=== PATIENT | male | born 1985 | race Hispanic/Latino ===

== ENCOUNTER 2018-04-19 09:55 | Emergency (ER) | payer BC ==
[2018-04-19 10:41] LABS: #Basophils 0.1 thou/uL (0.0-0.2); #Eosinphils 0.4 thou/uL (0.0-0.7); #Lymphocytes 1.3 thou/uL (1.20-3.40); #Monocytes 0.5 thou/uL (0.11-0.59); %Basophils 1.1 % (0.0-1.0); %Eosinophils 4.9 % (0.0-10.0); %Lymphocytes 16.1 % (21.0-51.0); %Monocytes 5.9 % (0.0-10.0); Hemoglobin 14.6 g/dL (14.0-18.0); Mean Corpuscular HGB CONC 33.2 g/dL (32.0-36.0); Mean Corpuscular Hemoglobin 32.6 pg (27.0-31.0); Mean Corpuscular Volume 98.3 fl (80.0-94.0); Mean Platelet Volume 6.8 fL (7.4-10.4); Platelet Count 366 thou/uL (130-400); RBC Distribution Width 11.4 % (11.5-14.5); Red Blood Cell (RBC) Count 4.48 mill/uL (4.70-6.10); White Blood Cell (WBC) Count 8.3 thou/uL (4.8-10.8)
--- NOTE | 2018-04-19 10:48 | RAD ---
TWO VIEWS CHEST: Date: 04-19-18 Comparison: 05-26-10 History: Shortness of breath, hypertension. FINDINGS: There is no pneumothorax, pleural fluid, focal consolidation or alveolar edema. Heart and mediastinal contours are unremarkable. IMPRESSION: No acute findings. POS: [facility]
[2018-04-19 11:09] LABS: ALT (SGPT) 35 U/L (8-55); AST (SGOT) 25 U/L (5-34); Albumin 4.4 g/dL (3.5-5.0); Alkaline Phosphatase 104 U/L (40-150); Anion Gap 12 mmol/L (10-20); BUN (Urea Nitrogen) 20 mg/dL (8.9-20.6); Bilirubin, Total 0.6 mg/dL (0.2-1.2); Calc. Creatinine Clearance 0 mL/min (70-130); Calcium 9.3 mg/dL (7.8-10.44); Carbon Dioxide 22 mmol/L (22-29); Chloride 107 mmol/L (98-107); Estimated GFR-MDRD Greater than 90; Globulin 3.8 g/dL (2.4-3.5); Glucose 112 mg/dL (70-105); Potassium 4.4 mmol/L (3.5-5.1); Protein, Total 8.2 g/dL (6.0-8.3); Sodium 137 mmol/L (136-145)
[2018-04-19 11:13] LABS: Troponin I Less than 0.010 ng/mL (< 0.028)
== END 2018-04-19 11:33 | disposition home or self-care (01) ==
LOC: EEVIPCON 09:55 → ERS 09:55
DX: I10 Essential (primary) hypertension (principal); R06.02 Shortness of breath; Z79.899 Other long term (current) drug therapy
CPT/HCPCS: 36415; 71046; 80053; 84484; 85025; 93005

== ENCOUNTER 2019-01-26 11:07 | Day surgery (SDC) | payer OTHER ==
[2019-01-25 14:10] VITALS: BMI 41.8
[2019-01-26] MEDS ORDERED: Midazolam HCl 2 mg/2 ml Vial ONE (11:24)
[2019-01-26] MEDS ORDERED: Fentanyl 100 MCG/2 ML VIAL ONE ×2 (11:24→11:38)
[2019-01-26] MEDS ORDERED: Lidocaine 2% Jelly 5 ML TUBE ONE (11:38)
[2019-01-26] MEDS ORDERED: Bupivacaine 0.25% HCL 30 ML VIAL ONE (12:07)
[2019-01-26 12:18] LABS: Anion Gap 13 mmol/L (10-20); BUN (Urea Nitrogen) 19 mg/dL (8.9-20.6); Calc. Creatinine Clearance 237 mL/min (70-130); Calcium 9.5 mg/dL (7.8-10.44); Carbon Dioxide 26 mmol/L (22-29); Chloride 105 mmol/L (98-107); Estimated GFR-MDRD Greater than 90; Glucose 95 mg/dL (70-105); Potassium 4.1 mmol/L (3.5-5.1); Sodium 140 mmol/L (136-145)
[2019-01-26] MEDS ORDERED: Lidocaine 1% (PF) 30 ML VIAL ONE (12:21)
[2019-01-26] MEDS ORDERED: Bacitracin Zinc Ointment 30 gm TUBE ONE (13:40)
[2019-01-26] MEDS ORDERED: Glycopyrrolate 0.2 MG/ML 5 ML SYRINGE ONE (13:53)
[2019-01-26] MEDS ORDERED: Ondansetron PF 4 MG/2 ML Vial ONE (13:53)
[2019-01-26] MEDS ORDERED: ePHEDrine 50 MG/ML VIAL ONE (13:53)
[2019-01-26] MEDS ORDERED: Lidocaine 1% PF 5 ML VIAL ONE (13:53)
[2019-01-26] MEDS ORDERED: PROPOFOL 200 MG/20 ML VIAL ONE (13:53)
--- NOTE | 2019-01-26 15:38 | OP ---
DATE OF PROCEDURE: 01/26/2019 PREOPERATIVE DIAGNOSES: Left small finger distal phalanx fracture with associated nail plate deformity and possible nail bed laceration, and injury is nearly 4 weeks old at this time. POSTOPERATIVE DIAGNOSES: Left small finger distal phalanx fracture with associated nail plate deformity and possible nail bed laceration, and injury is nearly 4 weeks old at this time. PROCEDURE PERFORMED: 1. Closed reduction percutaneous pinning of a left small finger distal phalanx fracture two-part and extra-articular. 2. Removal and repositioning of dystrophic nail plate. 3. Excision of scar tissue from sterile and germinal matrix, and then repair of nail bed laceration. ANESTHESIA: General and local. ESTIMATED BLOOD LOSS: Less than 10 mL. TOURNIQUET TIME: Less than 25 minutes. FINDINGS: Scarring around the sterile and germinal matrix, nail bed, left small finger displaced extra articular two part distal phalanx fracture and dystrophic nail plate left small finger. IMPLANTS: 0.035 K-wire and 0.045 K-wire. CONDITION: Stable. INDICATION FOR PROCEDURE: The patient is a 33-year-old male, who I saw in my clinic for the first time few days ago after he suffered an injury nearly a month ago to his left small finger. He suffered an injury while at work and involved somewhat of a crushing mechanism in the tip of the left small finger. He was seen and treated by his local provider staff on site. He presented to my clinic just few days ago for the first time with x-rays revealed a distal phalanx fracture of his left small finger, he also had a swollen dip joint and also nail plate abnormality as well. I discussed surgical and nonsurgical treatment options with the patient, and the patient opted to have surgical treatment in order to help to try to reduce the distal phalanx fracture, and also remove the nail plate and examine the underlying nail bed injury. I could not offer the patient any guarantees, unfortunately given the chronicity of his injury, he voiced understanding of this; however, I told him that I tried my best to realign any bone and take a look underneath the nail plate and repair whatever was necessary. He voiced understanding of this and agreed to proceeded. I discussed with his too, who is at bedside today in the holding area while the patient was awaiting surgery. She voiced understanding of all risks and goals. The goal of surgery is to optimize posttraumatic function of his left small finger. The risks associated with surgery include nonunion, malunion infection; injury to nerves, tendons, or blood vessels; need for further surgery; adverse reaction to anesthesia, etc. They both voiced understanding of all risks and goals associated with today's surgery and have elected to proceed with closed reduction percutaneous pinning for left small finger distal phalanx fracture, and then removal and repositioning nail plate and potential repair of nail bed. DESCRIPTION OF PROCEDURE: The patient was brought back to the operating room and placed supine on the operating room table. Antibiotics were given to the patient and left upper extremity tourniquet was applied. General anesthesia was induced by the Anesthesia team. Alcohol pads were used to prep the left small finger and after a time-out was performed, a digital ring block was administered in the left small finger using a combination of 1% plain lidocaine and 0.25% plain bupivacaine. The left upper extremity was then prepped and draped under sterile aseptic condition. 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 The patient's left upper extremity was prepped and draped under sterile aseptic condition and a second time out was performed. The left upper extremity was exsanguinated using an Esmarch wrap and the tourniquet was inflated to 250 mmHg. My attention was directed towards elevating the deformed nail plate off the underlying nail bed. I was able to do this bluntly and carefully using tenotomy scissors, care was taken to avoid any injury to the underlying nail bed. I was able to elevate the nail plate completely off the nail bed, and then placed into a sterile saline solution. There was some scarring overlying the sterile and germinal matrices, and I did my best to release all the scarring and remove it sharply using a 15-blade scalpel, and then I repaired this nail bed deformity and healed nail bed laceration using a simple interrupted 5-0 chromic sutures. I then debrided and trimmed the nail plate down and I was going to use this later as a splint to repair on a nail bed deformity. Prior to this, though I did perform a closed reduction, it was difficult to reduce the fracture given that it is nearly a month old, I did attempt to perform osteoclasis and tried to use a K-wire to do this as well. I used a 0.[address] to place it dorsally within the dip joint used it as a blocking pin to help reduce the proximal fragment and then I extended the finger at the dip joint to help maintain the reduction of the distal and proximal fragments, and then advanced a 0.045 K-wire in retrograde fashion distally to proximally. The 0.045 K-wire then crossed dip joint. I used fluoroscopic imaging to help guide both pins. Acceptable alignment of the pins was achieved, improved alignment of the fracture was also achieved. I was able to cut the 0.045 K-wire below the skin and then I bent and cut the 0.035 K-wire dorsally. I was able to suture the nail plate after it was debrided and trimmed underneath the appendicular skin fold, we used a splint to protect our nail bed repair. Tourniquet was deflated. Additional local anesthetic was infiltrated into the pin sites to help with postoperative pain. I dressed the pin sites and nail bed with Xeroform and bacitracin as well as a bulky dressing, and then I dressed and ring and small fingers together using 4x4's, Kerlix roll, and loosely fitted coban wrap. Prior to this, tourniquet was deflated and all fingers resumed in a normal pink color with good refill. The patient was extubated and transported back to the recovery area in stable condition. He was discharged home on pain medication. I will see him back in the clinic around 1 week for repeat x-rays out of the splint. We will have his hand therapist prior to that for fitting of a custom-molded protective splint for the left small finger and also to help with pain care and wound care. Job ID: [id number]
--- NOTE | 2019-01-26 17:15 | EKG ---
Test Reason : PREOP Blood Pressure : / mmHG Vent. Rate : 090 BPM Atrial Rate : 090 BPM P-R Int : 170 ms QRS Dur : 098 ms QT Int : 358 ms P-R-T Axes : 039 -19 016 degrees QTc Int : 437 ms Normal sinus rhythm Normal ECG Confirmed by MARKO MARRERO ([id number]) on 01/26/2019 5:15:09 PM Referred By: PATRICE Confirmed By:MARKO MARRERO
== END 2019-01-26 15:50 | disposition home or self-care (01) ==
LOC: SDC 11:07
PROVIDERS: ATTEND Surgery Surgery of the Hand
PROC: 0HDQXZZ Extraction of Finger Nail, External Approach (ICD-10-PCS; principal; 2019-01-26)
PROC: 0PSV34Z Reposition Left Finger Phalanx with Internal Fixation Device, Percutaneous Approach (ICD-10-PCS; principal; 2019-01-26)
PROC: 0HQQXZZ Repair Finger Nail, External Approach (ICD-10-PCS; principal; 2019-01-26)
DX: S62.637A Displaced fracture of distal phalanx of left little finger, initial encounter for closed fracture (principal); S61.317A Laceration without foreign body of left little finger with damage to nail, initial encounter; I10 Essential (primary) hypertension; Z79.899 Other long term (current) drug therapy; Z98.890 Other specified postprocedural states; X58.XXXA Exposure to other specified factors, initial encounter
CPT/HCPCS: 76000; 80048; 93005; 93010; J2001; J2250; J2405; J2704; J3010; J3490; S0020